=== PATIENT | female | born 1975 | race Caucasian/White ===

== ENCOUNTER 2019-07-08 16:22 | Emergency (ER) | payer MEDICARE ==
[~2019-07-08] VITALS: Ht 167.6 cm; Wt 66.0 kg
[~2019-07-08 16:22] MED LIST: AZIT250T PO
[2019-07-08 16:35] VITALS: Ht 167.6 cm; Wt 66.0 kg
[2019-07-08] MEDS ORDERED: ASPIRIN 81 MG TAB PO ONE (18:30)
[2019-07-08] MEDS ORDERED: morphine 4 MG/ML VIAL IV STA ×2 (19:24→21:31)
[2019-07-08] MEDS ORDERED: POTASSIUM CHLORIDE (SR) 20 MEQ TAB PO STA (20:18)
[2019-07-08] MEDS ORDERED: MAGNESIUM SULFATE 2 GM/50 ML 50 ML IVPB ONE (20:30)
[2019-07-08] MEDS ORDERED: IOHEXOL 100 ML ONE (22:17)
[2019-07-08] MEDS ORDERED: SOD CHLORIDE 0.9% 100 ML ONE (22:17)
[2019-07-08 23:23] VITALS: BP 136/83; PULSE 93; RESP 15
== END 2019-07-08 23:27 | disposition home or self-care (01) ==
LOC: E/R 16:22
DX: R07.9 Chest pain, unspecified (principal); R40.2142 Coma scale, eyes open, spontaneous, at arrival to emergency department; R40.2362 Coma scale, best motor response, obeys commands, at arrival to emergency department; R40.2252 Coma scale, best verbal response, oriented, at arrival to emergency department; J22 Unspecified acute lower respiratory infection; E87.6 Hypokalemia; D69.6 Thrombocytopenia, unspecified; I10 Essential (primary) hypertension; F17.210 Nicotine dependence, cigarettes, uncomplicated; Z86.73 Personal history of transient ischemic attack (TIA), and cerebral infarction without residual deficits
CPT/HCPCS: 36415; 71045; 71275; 80048; 81025; 84484; 85025; 85378; 93005; 96374; 96375; 96376; 99285; J2270; J3475; Q9967